=== PATIENT | male | born 1975 | race Caucasian/White ===

== ENCOUNTER 2021-12-05 04:20 | Emergency (ER) | payer OTHER ==
[~2021-12-05] VITALS: Ht 180.3 cm; Wt 108.9 kg
[~2021-12-05 04:20] MED LIST: CELEBREX100 MG PO; DEMEROL50 MG PO; ORPH100T PO; PROTONIX40 MG PO; SKELAXIN800 MG PO
[2021-12-05] MEDS ORDERED: LIPITOR20 MG (04:36)
[2021-12-05] MEDS ORDERED: TYLENOL (04:37)
== END 2021-12-05 10:57 | disposition home or self-care (01) ==
LOC: ER 04:20
DX: N39.0 Urinary tract infection, site not specified (principal); M54.9 Dorsalgia, unspecified; N20.0 Calculus of kidney; N20.1 Calculus of ureter

== ENCOUNTER 2023-01-30 09:05 | Outpatient (CLI) | payer OTHER ==
[~2023-01-30 09:05] MED LIST changes: +LIPITOR20 MG; +TYLENOL
== END 2023-01-30 09:13 | disposition home or self-care (01) ==
LOC: NUCLEAR 09:05
DX: I10 Essential (primary) hypertension (principal); E78.2 Mixed hyperlipidemia